=== PATIENT | female | born 1980 | race Hispanic/Latino ===

== ENCOUNTER 2023-10-01 19:40 | Emergency (ER) | payer OTHER ==
[~2023-10-01] VITALS: Ht 162.6 cm; Wt 86.2 kg
[~2023-10-01 19:40] MED LIST: CLEOCIN HCL300 MG PO; NAPROSYN500 MG PO; PREDNISONE10 MG PO; PREDNISONE20 MG PO; VALTREX1000 MG PO
[2023-10-01 21:33] VITALS: PULSE 79; RESP 18; TEMP 98.4
[2023-10-01] MEDS ORDERED: VALTREX1000 MG PO (23:16)
[2023-10-01] MEDS: IBUPROFEN 600 MG TAB PO STA (23:17)
[2023-10-01] MEDS ORDERED: CLINDAMYCIN HC300 MG PO (23:18)
[2023-10-01 23:28] VITALS: BP 136/70; PULSE 78; RESP 18; TEMP 98.4; O2SAT 98
== END 2023-10-01 23:30 | disposition home or self-care (01) ==
LOC: FSED 20:53
DX: I88.9 Nonspecific lymphadenitis, unspecified (principal); B02.9 Zoster without complications
CPT/HCPCS: 99282